=== PATIENT | female | born 1990 | race African-American/Black ===

== ENCOUNTER 2019-08-16 05:34 | Outpatient (CLI) | payer OTHER, SELFPAY ==
[2019-08-16 18:34] LABS: SARS-CoV-2 RNA PCR Negative
== END 2019-08-16 05:35 | disposition home or self-care (01) ==
LOC: ANHCOVIDDT 05:35
PROVIDERS: Visit Provider Surgery Plastic and Reconstructive Surgery
DX: Z01.818 Encounter for other preprocedural examination (principal); Z11.59 Encounter for screening for other viral diseases
CPT/HCPCS: 87635; C9803; U0003

== ENCOUNTER 2019-08-18 01:13 | Day surgery (SDC) | payer OTHER, SELFPAY ==
[2019-08-15 12:47] VITALS: BMI 23.8
[2019-08-18] VITALS (7 sets, daily range): BP systolic 116–133; BP diastolic 74–83; PULSE 62–88; RESP 14–18; TEMP 36.1–37.2; O2SAT 100
--- NOTE | 2019-08-18 06:34 | WPDHPUPDATE1 ---
History and Physical Update Update Date/Time: 08/18/19 06:34 History and Physical has been reviewed, including an updated exam of the patient. There are NO changes in the patient's condition. Risks, benefits, and alternatives have been discussed and questions answered. These include the procedure and Covid-19 risks. Patient agrees to proceed with procedure.
--- NOTE | 2019-08-18 06:39 | PM.PROC ---
Procedure Note - Detailed Date of procedure: 08/18/19 Pre-op diagnosis: Macromastia Post-op diagnosis: same Procedure performed: Bilateral Breast Reduction Description of procedure: She is here today for bilateral breast reduction. Previously and again today the risks, benefits, alternatives were discussed in extensive detail. I wanted her to be very realistic about the risks involved as well as expectations. We discussed aftercare and what to monitor for. She understands we can never guarantee final breast size and there will always be asymmetry. I was very upfront and honest about the risks of sensation change and even nipple loss (). Made sure answered all of her questions to her satisfaction today and consent was obtained. She was marked in the preoperative holding area with their verification. The patient was taken to the operating room placed supine on the operating table. Anesthesia was provided by anesthesiology. She was prepped and draped in a standard sterile fashion. A surgical time-out was taken. Stab incisions were made and I tumessed with a tumescent solution. I marked out the nipple-areolar complex at 42 mm. I then de-epithelialized the pedicle. The pedicle was well left well more than 2 cm in thickness. I then removed the inferior portion of the breast as well as the central keel to get shape based on preoperative planning. At this point copiously irrigated with saline solution and verified a strict hemostasis. I reapproximated the pillars using a 2-0 PDS as well as along the IMF. I tailor tacked the breast into place with chelsea. She was placed in a sitting position. I verified the nipple-areolar complex position based on preoperative markings, intraoperative measurements, and observation which were in full agreement. This nipple-areolar complex was marked at 42 mm in size. I then placed supine and de-epithelialized this. Nipple-areolar complex was inset with 3-0 Monocryl. I closed the vertical incision with 3-0 Monocryl in the IMF with 3-0 stratafix. Then everything was closed using a running subcuticular 4-0 Monocryl followed by Steri-Strips. A dressing was placed followed by surgical bra. Patient was awoke and taken to PACU without difficulty. All instrument sponge counts were correct at the end of the case. Anesthesia: GLMA Surgeon: Ashvin Johnson MD Estimated blood loss (mL): 50 Drains: No Packing: No Pathology: yes (bilateral breast tissue) Complications: No immediate complications Condition: stable Disposition: PACU Findings: Superior medial pedicle, inferior T reduction mammaplasty. Tissue removed (sent to pathology): Right: 878.8 grams Left: 829.6 grams
--- NOTE | 2019-08-18 06:46 | P.PNAN_ITS ---
Anes - Initial Pre Proc Eval Procedure: Operation Date: 08/18/19 07:30 Proposed Procedures p Bilateral Reduction Mammoplasty - Ashvin Johnson MD Date/Time: 08/18/19 06:46 Surgeon: Ashvin Johnson MD Pre Op Diagnosis: Macromastia Patient Data Age: 29 Gender: F Height: 5 ft 5 in Weight: 65 kg Allergies Allergy/AdvReac Type Severity Reaction Status Date / Time No Known Allergies Allergy Verified 08/18/19 07:54 Home Medications Medication Instructions Recorded Confirmed Type escitalopram oxalate 10 mg tablet 10 mg PO DAILY 04/13/19 08/18/19 History topiramate 50 mg capsule,extended 50 mg PO DAILY 04/13/19 08/18/19 History release 24 hr hydrocodone 5 mg-acetaminophen 325 1 tablet PO Q6H PRN #15 tablet 07/25/19 08/15/19 Rx mg tablet ondansetron HCl 4 mg tablet 4 mg PO Q6H PRN #30 tablet 07/25/19 08/15/19 Rx Patient hx anesthesia problems: none Family hx anesthesia problems: none [facility] Past Medical History Medical History (Updated 08/18/19 @ 06:46 by Harsh Granado MD) Anxiety Depression Hx of migraines Social History Social History Gender identity (if verbalized by the patient): Female Anes - Eval Final PreProcedure Day of Procedure 08/18/19 06:46 Patient weight: normal Heart: regular rate and rhythm Lungs: clear to auscultation Airway: Mallampati scale class II Neurological: alert and oriented Last oral intake: >/= 8 hours ASA classification: II Emergent: no Anesthetic plan: proceed Anesthesia type and monitoring: general LMA and standard monitoring Other findings: TIVA Informed Consent: The patient's anesthetic plan and its attendant risks and benefits were discussed with the patient/family/POA. Questions were solicited and answers provided to the satisfaction of the patient/family/POA.
[2019-08-18] MEDS: LACTATED RINGERS 1,000 ML 30 ML IV CONT ×2 (07:00→10:00)
[2019-08-18 07:16] LABS: Urine Cotinine NEGATIVE
[2019-08-18] MEDS: ceFAZolin 2 GM/D5W 50 ML 2 GM/50 ML BAG IVPB (07:27)
== END 2019-08-18 11:31 | disposition home or self-care (01) ==
PROVIDERS: Visit Provider Surgery Plastic and Reconstructive Surgery
PROC: 0HBV0ZZ Excision of Bilateral Breast, Open Approach (ICD-10-PCS; CPT 19318; principal; 2019-08-18 07:30)
DX: N62 Hypertrophy of breast (principal); N60.32 Fibrosclerosis of left breast; N60.31 Fibrosclerosis of right breast; F41.8 Other specified anxiety disorders
CPT/HCPCS: 19318; 36415; 80307; 88305; A9270; J0171; J0690; J1100; J2250; J2405; J2704; J3010; J7120

== ENCOUNTER 2019-09-01 13:48 | Day surgery (SDC) | payer OTHER, SELFPAY ==
[2019-09-01] VITALS (9 sets, daily range): BP systolic 107–119; BP diastolic 65–77; PULSE 64–91; RESP 10–18; TEMP 36.4–37.4; O2SAT 100
--- NOTE | 2019-09-01 13:49 | WPDANESEPPF ---
Anes - Initial Pre Proc Eval Procedure: Operation Date: 09/01/19 13:30 Proposed Procedures p Wash Out Left Breast Hematoma - Ashvin Johnson MD Date/Time: 09/01/19 13:49 Surgeon: Ashvin Johnson MD Pre Op Diagnosis: hematoma left breast Patient Data Age: 29 Gender: F Height: Weight: Allergies Allergy/AdvReac Type Severity Reaction Status Date / Time No Known Allergies Allergy Verified 09/01/19 13:18 Home Medications Medication Instructions Recorded Confirmed Type escitalopram oxalate 10 mg tablet 10 mg PO DAILY 04/13/19 08/18/19 History topiramate 50 mg capsule,extended 50 mg PO DAILY 04/13/19 08/18/19 History release 24 hr hydrocodone 5 mg-acetaminophen 325 1 tablet PO Q6H PRN #15 tablet 07/25/19 08/15/19 Rx mg tablet ondansetron HCl 4 mg tablet 4 mg PO Q6H PRN #30 tablet 07/25/19 08/15/19 Rx Patient hx anesthesia problems: none Family hx anesthesia problems: none PMF[facility] Past Medical History Medical History (Updated 09/01/19 @ 13:19 by Ashvin Johnson MD) Anxiety Depression Hx of migraines Surgical History Surgical History (Updated 09/01/19 @ 13:50 by Delbert Sadler MD) H/O bilateral breast reduction surgery H/O tubal ligation Social History Social History Gender identity (if verbalized by the patient): Female Anes - Eval Final PreProcedure Day of Procedure 09/01/19 13:49 Patient weight: normal Heart: regular rate and rhythm Lungs: clear to auscultation and normal air movement Airway: Mallampati scale class II Neurological: alert and oriented Last oral intake: >/= 8 hours ASA classification: II Emergent: yes Anesthetic plan: proceed Anesthesia type and monitoring: general LMA Informed Consent: The patient's anesthetic plan and its attendant risks and benefits were discussed with the patient/family/POA. Questions were solicited and answers provided to the satisfaction of the patient/family/POA.
[2019-09-01] MEDS: LACTATED RINGERS 1,000 ML 30 ML IV CONT (14:10)
[2019-09-01] MEDS: ceFAZolin 2 GM/D5W 50 ML 2 GM/50 ML BAG IVPB (14:18)
[2019-09-01] MEDS: LIDO 1%/EPINEPHRINE 1:100,000 20 ML VIAL 40 ML INFILTRATE (14:45)
--- NOTE | 2019-09-01 15:21 | P.OP_ITS ---
Procedure Note - Detailed Date of procedure: 09/01/19 Pre-op diagnosis: hematoma left breast Post-op diagnosis: same Procedure performed: Evacuation left breast hematoma Description of procedure: She presented to the office 48 hours after she began to develop increasing fullness of her left breast. She states she does not remember any specific injuries or trauma. She has just been doing normal activities. She was having increasing discomfort of this breast. She would like proceed to the operating room. Risks, benefits, alternatives discussed in extensive detail. All questions answered to her satisfaction and consent obtained. Left breast was marked with her verification. She was taken to the operating room placed supine on the operating room table. Anesthesia was provided by anesthesia and prepped and draped in standard sterile fashion. Surgical time-out was taken. 1% lidocaine and 0.25% Marcaine with epinephrine was used to provide a field block. Fifteen blade used to incise the IMF as well as the vertical incision. Dissection was continued down releasing the sutures until I had noted a hematoma which appeared to be just deep to the nipple- areolar complex. There is no evidence of injury to the pedicle. Further I did not have to release any sutures around the areola. I evacuated just over 100 cc of old blood. I then irrigated with more than 3 L of saline solution. We then sat for a period of time and verified strict hemostasis. Identified several small areas of venous bleeding no active arterial bleeding identified and no recurrence of blood after monitoring. I closed by reapproximating the pillars as well as the deep surface with 2-0 Vicryl followed by 3-0 Monocryl in a running subcuticular 4-0 Monocryl and Steri-Strips. Morales wrap surgical bra were placed. Patient was taken to the PACU without difficulty. All instrument sponge counts were correct at the end of the case. Anesthesia: GLMA Surgeon: Ashvin Johnson MD Estimated blood loss (mL): 20 Drains: No Packing: No Pathology: none sent Complications: No immediate complications Condition: stable Disposition: PACU Findings: Just over 100 cc of old blood. I explored all planes and there is no additional evidence of additional hematoma. We monitored for prolonged period of time after washing out no active bleeding identified. She tolerated the procedure well.
[2019-09-01] MEDS: HYDROMORPHONE HCL 1 MG/ML INJ 0.25 MG IV PUSH ×2 (16:26→16:32)
--- NOTE | 2019-09-01 17:00 | SUR.PHASEII ---
PT'S MOTHER UPDATED.
== END 2019-09-01 17:30 | disposition home or self-care (01) ==
PROVIDERS: Visit Provider Surgery Plastic and Reconstructive Surgery
PROC: (CPT 10140; principal; 2019-09-01 13:30)
DX: L76.34 Postprocedural seroma of skin and subcutaneous tissue following other procedure (principal); Y83.8 Other surgical procedures as the cause of abnormal reaction of the patient, or of later complication, without mention of misadventure at the time of the procedure; F41.8 Other specified anxiety disorders
CPT/HCPCS: 10140; J0690; J1100; J1170; J2405; J2704; J3010; J7120